=== PATIENT | male | born 1955 | race Caucasian/White ===

== ENCOUNTER 2019-10-03 15:22 | Emergency (ER) | payer MEDICARE, SELFPAY ==
[2019-10-03 15:24] VITALS: BP 148/84; PULSE 83; RESP 18; TEMP 36.8; O2SAT 97
[2019-10-03 15:25] VITALS: BP 148/84; PULSE 87; RESP 18; TEMP 36.8; O2SAT 97; BMI 39.0
--- NOTE | 2019-10-03 15:43 | ED.DCSUM_ITS ---
History of Present Illness Chief Complaint: Edema Informant: Patient Onset: Hours - 2 Context: Sudden Onset - relatively Timing: Continuous Quality: swelling. no pain, itching. just uncomfortable. Location: left jaw Current Severity: Mild Maximum Severity: Mild Worsened by: nothing in particular Relieved by: nothing Associated Symptoms: none. Narrative: Patient had angioedema of the left side of his tongue a week ago, he was put on prednisone which seemed to help, and he was admitted to the ICU for monitoring without the need for intubation. He states he seemed to have caught a cold from that visit, which was at [place] in [place], [place], and he has been taking NyQuil yesterday concerned that that may have caused this. He states he used to be on lisinopril and had angioedema from that years ago but has been off of all CLAI inhibitor's and ARBs since then. He has no idea what started this a week ago. He was put on prednisone and took the last dose yesterday and had this occur today but it has not involved his tongue or his throat at all. He denies any problems breathing or swallowing. He denies any fevers. Denies any chest or abdominal symptoms. He states he feels fine except for the swelling in his left jaw. It does not involve his lip either. - Past Medical History (1) Hypertension Status: Chronic (2) Hyperlipidemia Status: Chronic (3) Type 2 diabetes mellitus Status: Chronic Past Medical History - Allergies and Home Meds Allergies/Adverse Reactions: Allergies empagliflozin [From Jardiance] Allergy (Verified 10/03/19 16:04) Itching lisinopril Allergy (Verified 10/03/19 16:04) Angioedema Primary Care Physician: Lobo Alan MD [Primary Care Provider] - Alcohol: None Drugs: None Review of Systems General: Denies: Chills, Fever, Sweats Eyes: Denies: Visual changes - bilaterally, Diplopia ENT: Reports: - - Left jaw swelling. No dental pain/gingival pain/oral pain. Denies: Rhinorrhea, Sore throat Cardiovascular: Denies: Chest pain, Palpitations Respiratory: Denies: Dyspnea, Cough, Dyspnea on exertion Gastrointestinal: Denies: Abdominal pain, Nausea, Vomiting, Diarrhea, Melena, Hematochezia Genitourinary: Denies: Dysuria, Hematuria, Frequency Musculoskeletal: Denies: Back pain, Swelling, Extremity Pain Skin: Denies: Rash, Wounds Neurological: Denies: Headache, Weakness, Numbness Physical Exam Vital Signs/Narrative: Vital Signs Temp Pulse Resp BP Pulse Ox 10/03/19 15:25 98.2 F 87 18 148/84 H 97 10/03/19 15:24 98.2 F 83 18 148/84 H 97 Inital Vital Signs reviewed: Yes General: Well nourished, Well developed, Obese, No Acute Distress - Well- appearing, conversive in full sentences Head: Normocephalic, Atraumatic Eyes: Perrl, EOMI ENT: Moist mucous membranes, No rhinorrhea, - - Mild swollen area left anterior jaw. It is not fluctuant or tender or erythematous. There is no intraoral tenderness, swelling, tongue asymmetry, or intraoral angioedema. His lips are normal and symmetric without edema. He is edentulous, his gingiva are nontender. There is no intraoral mucosal lesion. I lied him flat. He has no trouble breathing, no stridor, no symptoms. Neck: Supple, Nontender, No lymphadenopathy, No JVD Cardiovascular: Regular rate, Regular rhythm, No murmurs, Normal S1, Normal S2. Negative for: Tachycardia Respiratory: No distress, CTA bilaterally, Chest nontender Abdomen: Soft, Nontender, Nondistended, Normal bowel sounds Back: Nontender, Normal Inspection Extremities: Nontender, No edema Skin: Normal color, No rash, No Trauma Neurological: Alert, Oriented x3, Cranial nerves II-XII grossly intact, Normal Strength, Normal Sensation, Normal Gait Psychological: Normal affect, Normal Mood Diagnostic/Tx/Re-eval - Medical Decision Making Discussed with patient that I advised that he get prednisone and be admitted today/tonight, in order to be the most safe. He refuses and wants to stay here for a while to see if the prednisone helps, he states it helped quickly in the past. IV ordered along with Solu-Medrol 125 mg. On reevaluation 2 hours later, patient feels improved. He still has a little swelling there. There is no lip or tongue involvement or any worsening symptoms. He wants to go home. We discussed thoroughly about risks, and the fact that he lives in between to emergency departments. He understands the risks, he has had it come on very quickly before, he feels like things are improving and he wants to go home on prednisone which I am fine with, with the shared decision making I do not feel he needs to be discharged AGAINST MEDICAL ADVICE given his experience with this before and recently finishing prednisone. He has an appointment with an associate spa director this coming month and he is following up, sooner if he is able. His recent prednisone was not a taper, we will be extending it and tapering it down. ED Disposition - Plan for ED Patient: Disposition: Home or Assisted Living Diagnosis: Idiopathic angioedema Instructions: ED Angioedema Prescriptions: Prednisone 10 mg PO UD #33 tab Prescription Printed Referrals: Lobo Alan MD [Primary Care Provider] - As soon as possible (And/or your associate spa director)
[2019-10-03] MEDS: MethylPREDNISolone 125 MG/2 ML Vial IV (16:13)
[2019-10-03 18:05] VITALS: BP 145/69; PULSE 85; RESP 16; O2SAT 96
--- NOTE | 2019-10-03 18:05 | ED.RN ---
IV DC'ED, CATHETER INTACT, SMALL GAUZE DRESSING PLACED. DISCHARGE INSTRUCTIONS GIVEN TO AND REVIEWED WITH PATIENT, PATIENT DENIES QUESTIONS OR CONCERNS AND VOICES UNDERSTANDING OF DISCHARGE INSTRUCTIONS. PT AMBULATES OUT OF ROOM WITHOUT DIFFICULTY.
== END 2019-10-03 18:06 | disposition home or self-care (01) ==
PROVIDERS: Emergency Provider Emergency Medicine; PCP Family Medicine
DX: T78.3XXA Angioneurotic edema, initial encounter (principal); E11.9 Type 2 diabetes mellitus without complications; I10 Essential (primary) hypertension; E78.5 Hyperlipidemia, unspecified; E66.9 Obesity, unspecified; Z79.84 Long term (current) use of oral hypoglycemic drugs; Z79.52 Long term (current) use of systemic steroids; Z79.899 Other long term (current) drug therapy; Z88.8 Allergy status to other drugs, medicaments and biological substances
CPT/HCPCS: 96374; 99283; A4216

== ENCOUNTER → 2020-11-19 09:05 | Outpatient (CLI) | payer MEDICARE, SELFPAY ==
[2020-11-19 09:44] LABS: Absolute Lymphocyte Count 3.74 X10^3/uL (0.83-4.51); Absolute Neutrophil Count 4.8 X10^3/uL (2.0-7.7); Basophil# 0.06 X10^3/uL; Basophil% 0.6 % (0-1); Eosinophil# 0.54 X10^3/uL; Eosinophils% 5.5 % (0-5); Hemoglobin 14.5 g/dL (13.0-16.5); Lymphocyte # 3.74 X10^3/ul (4.0); Mean Corp Hgb Conc 33.7 g/dL (32-36); Mean Corpuscular Hgb 29.9 pg (27.0-32.0); Mean Corpuscular Volume 88.7 fL (80-94); Mean Platelet Vol. 8.5 fl (6.2-12.0); Monocyte# 0.66 X10^3/uL; Monocyte% 6.7 % (0-10); NRBC Flagged by Analyzer 0 % (0-5); Neutrophil # 4.82 X10^3/uL (2.7-7.7); Neutrophil % 48.9 % (47-70); Platelet Count 302 K/mm3 (150-450); RBC Distribution Width CV 11.9 % (11.6-14.6); RBC Distribution Width SD 38.5 fl (35.1-43.9); Red Blood Count 4.85 M/mm3 (4.6-6.2); White Blood Count 9.9 K/mm3 (4.4-11.0)
[2020-11-19 09:58] LABS: Anion Gap 4 (5-15); BUN 11 mg/dL (7-18); BUN/Creat Ratio 11.3 RATIO (10-20); Chloride 105 mmol/L (98-107); Creatinine, Serum 0.98 mg/dL (0.70-1.30); EST Glomerular Filtration Rate 81 mL/min (>60); Est Glom Filt Rate - Afr Amer 98 mL/min (>60); Glucose 259 mg/dL (74-106); Potassium 4.7 mmol/L (3.5-5.1); Sodium Level 140 mmol/L (136-145)
[2020-11-19 10:01] LABS: Hemoglobin A1c 10.5 % (3.8-5.6)
== END ==
PROVIDERS: PCP Family Medicine; Referring Provider Family Medicine; Visit Provider Family Medicine
DX: E11.65 Type 2 diabetes mellitus with hyperglycemia (principal); I10 Essential (primary) hypertension
CPT/HCPCS: 36415; 80048; 83036; 85025

== ENCOUNTER → 2020-11-22 14:44 | Outpatient (CLI) | payer MEDICARE, SELFPAY ==
[2020-11-22 15:37] LABS: CRP < 2.90 mg/L (0.0-3.0)
[2020-11-26 07:32] LABS: ANTINUCLEAR ANTIBODIES DIRECT Negative (Negative)
[2020-11-27 14:10] LABS: Immunoglobulin E 196 IU/mL (6-495); Immunoglobulin G 855 mg/dL (603-1613); PROEL- A/G Ratio 1.2 (0.7-1.7); PROEL- Albumin 3.6 g/dL (2.9-4.4); PROEL- Alpha-1 Globulin 0.2 g/dL (0.0-0.4); PROEL- Beta Globulin 1.1 g/dL (0.7-1.3); PROEL- Gamma Globulin 0.8 g/dL (0.4-1.8); PROEL- Globulin, Total 3.1 g/dL (2.2-3.9); PROEL- TOTAL PROTEIN 6.7 g/dL (6.0-8.5); PROELU- Albumin, Urine 30.4 % (.); PROELU- Alpha-1-Globulin,Ur 1.6 % (.); PROELU- Beta Globulin, Ur 27.7 % (.); PROELU- Gamma Globulin, Ur 26.3 % (.); Total Protein, Ur 9.2 mg/dL (Not Estab.)
[2020-11-27 15:08] LABS: CMV Acute Antibody IgM < 30.0 AU/mL (0.0-29.9); Immunoglobulin A 321 mg/dL (61-437)
== END ==
LOC: PAVLAB 14:46
PROVIDERS: PCP Family Medicine; Referring Provider Family Medicine; Visit Provider Family Medicine
DX: T78.3XXD Angioneurotic edema, subsequent encounter (principal); X58.XXXD Exposure to other specified factors, subsequent encounter
CPT/HCPCS: 36415; 82784; 82785; 84165; 84166; 86038; 86140; 86645

== ENCOUNTER → 2021-02-22 10:59 | Outpatient (CLI) | payer MEDICARE, SELFPAY ==
[2021-02-22 11:57] LABS: AST(SGOT) 18 U/L (15-37); Alanine Aminotransfer ALT/SGPT 29 U/L (16-61); Albumin, Serum 3.5 g/dL (3.2-5.0); Alkaline Phosphatase 31 U/L (45-117); Anion Gap 6 (5-15); BUN 13 mg/dL (7-18); BUN/Creat Ratio 13.2 RATIO (10-20); Calcium,Total 8.8 mg/dL (8.5-10.1); Chloride 105 mmol/L (98-107); Creatinine, Serum 0.99 mg/dL (0.70-1.30); EST Glomerular Filtration Rate 80 mL/min (>60); Est Glom Filt Rate - Afr Amer 97 mL/min (>60); Globulin 3.5 g/dL (2.2-4.2); Glucose 198 mg/dL (74-106); Potassium 3.6 mmol/L (3.5-5.1); Sodium Level 139 mmol/L (136-145); Thyroid Stim Hormone (TSH) 3.42 uIU/mL (0.358-3.74)
[2021-02-22 19:16] LABS: Xtra Tube EP Lab EXTRA TUBE
== END ==
LOC: PAVLAB 11:00
PROVIDERS: PCP Family Medicine; Referring Provider Nurse Practitioner Adult Health; Visit Provider Nurse Practitioner Adult Health
DX: E11.65 Type 2 diabetes mellitus with hyperglycemia (principal); E03.9 Hypothyroidism, unspecified; Z12.5 Encounter for screening for malignant neoplasm of prostate
CPT/HCPCS: 36415; 80053; 84153; 84443; G0103

== ENCOUNTER → 2021-08-21 11:03 | Outpatient (CLI) | payer MEDICARE, SELFPAY ==
[2021-08-21 11:45] LABS: Cholesterol 88 mg/dL (200); High Density Lipoprotein 30 mg/dL; Triglycerides 112 mg/dL; Very Low Density Lipoprotein 22 mg/dL (5-40)
[2021-08-21 12:02] LABS: Microalbumin:Creatinine Ratio 70.9 mg/g CRE (<30 mg/g CRE)
== END ==
PROVIDERS: PCP Family Medicine; Referring Provider Nurse Practitioner Adult Health; Visit Provider Nurse Practitioner Adult Health
DX: E11.65 Type 2 diabetes mellitus with hyperglycemia (principal)
CPT/HCPCS: 36415; 80061; 82043; 82570

== ENCOUNTER 2021-11-13 09:09 | Outpatient (CLI) | payer MEDICARE, SELFPAY ==
[2021-11-13 09:44] LABS: ALB/GLOB Ratio 0.9 RATIO (0.9-2.4); AST(SGOT) 17 U/L (15-37); Alanine Aminotransfer ALT/SGPT 25 U/L (16-61); Albumin, Serum 3.7 g/dL (3.2-5.0); Alkaline Phosphatase 30 U/L (45-117); Anion Gap 6 (5-15); BUN 20 mg/dL (7-18); BUN/Creat Ratio 18.7 RATIO (10-20); Calcium,Total 9.6 mg/dL (8.5-10.1); Chloride 102 mmol/L (98-107); Creatinine, Serum 1.07 mg/dL (0.70-1.30); EST Glomerular Filtration Rate 73 mL/min (>60); Est Glom Filt Rate - Afr Amer 88 mL/min (>60); Globulin 3.9 g/dL (2.2-4.2); Glucose 194 mg/dL (74-106); Protein, Total 7.6 g/dL (6.4-8.2); Sodium Level 137 mmol/L (136-145)
== END 2021-11-13 23:59 | disposition home or self-care (01) ==
LOC: PAVLAB 09:12
PROVIDERS: PCP Family Medicine; Referring Provider Nurse Practitioner Adult Health; Visit Provider Nurse Practitioner Adult Health
DX: E11.65 Type 2 diabetes mellitus with hyperglycemia (principal)
CPT/HCPCS: 36415; 80053

== ENCOUNTER → 2022-03-04 | Outpatient (CLI) | payer MEDICARE, SELFPAY ==
[2022-03-04 09:25] LABS: Hematocrit 44.5 % (40-54); Hemoglobin 15.6 g/dL (13.0-16.5); Mean Corp Hgb Conc 35.1 g/dL (32-36); Mean Corpuscular Hgb 29.9 pg (27.0-32.0); Mean Corpuscular Volume 85.2 fL (80-94); Mean Platelet Vol. 8.2 fl (6.2-12.0); Platelet Count 347 K/mm3 (150-450); RBC Distribution Width SD 37.3 fl (35.1-43.9); Red Blood Count 5.22 M/mm3 (4.6-6.2); White Blood Count 11.3 K/mm3 (4.4-11.0)
[2022-03-04 09:55] LABS: Cholesterol 121 mg/dL (200); High Density Lipoprotein 29 mg/dL; PSA,Total - Annual Screen 2.25 ng/mL (0.00-4.00); Thyroid Stim Hormone (TSH) 4.41 uIU/mL (0.358-3.74); Triglycerides 176 mg/dL; Very Low Density Lipoprotein 35 mg/dL (5-40)
== END | disposition home or self-care (01) ==
LOC: PAVLAB 08:57
PROVIDERS: PCP Family Medicine; Referring Provider Nurse Practitioner Adult Health; Visit Provider Nurse Practitioner Adult Health
DX: E11.65 Type 2 diabetes mellitus with hyperglycemia (principal); Z12.5 Encounter for screening for malignant neoplasm of prostate
CPT/HCPCS: 36415; 80061; 84153; 84443; 85027; G0103

== ENCOUNTER → 2022-03-06 | Outpatient (CLI) | payer MEDICARE, SELFPAY ==
[2022-03-06 13:03] LABS: Thyroid Stim Hormone (TSH) 0.96 uIU/mL (0.358-3.74)
== END | disposition home or self-care (01) ==
DX: R94.6 Abnormal results of thyroid function studies (principal)
CPT/HCPCS: 36415; 84439; 84443; 84481

== ENCOUNTER → 2022-09-27 | Outpatient (CLI) | payer MEDICARE, SELFPAY ==
[2022-09-27 10:30] LABS: Hematocrit 42.3 % (40-54); Hemoglobin 14.6 g/dL (13.0-16.5); Mean Corp Hgb Conc 34.5 g/dL (32-36); Mean Corpuscular Hgb 30.5 pg (27.0-32.0); Mean Corpuscular Volume 88.3 fL (80-94); Mean Platelet Vol. 8.6 fl (6.2-12.0); Platelet Count 341 K/mm3 (150-450); RBC Distribution Width CV 12.4 % (11.6-14.6); RBC Distribution Width SD 39.9 fl (35.1-43.9); Red Blood Count 4.79 M/mm3 (4.6-6.2); White Blood Count 9.7 K/mm3 (4.4-11.0)
[2022-09-27 10:59] LABS: Hemoglobin A1c 9.7 % (3.8-5.6)
[2022-09-27 11:04] LABS: ALB/GLOB Ratio 0.9 RATIO (0.9-2.4); AST(SGOT) 14 U/L (15-37); Alanine Aminotransfer ALT/SGPT 25 U/L (16-61); Albumin, Serum 3.5 g/dL (3.2-5.0); Alkaline Phosphatase 33 U/L (45-117); Anion Gap 8 (5-15); BUN 15 mg/dL (7-18); BUN/Creat Ratio 17.4 RATIO (10-20); Calcium,Total 8.9 mg/dL (8.5-10.1); Chloride 103 mmol/L (98-107); Cholesterol 120 mg/dL (200); Creatinine, Serum 0.86 mg/dL (0.70-1.30); EST Glomerular Filtration Rate 94 mL/min (>60); Est Glom Filt Rate - Afr Amer 113 mL/min (>60); Globulin 3.7 g/dL (2.2-4.2); Glucose 222 mg/dL (74-106); High Density Lipoprotein 38 mg/dL; Potassium 3.9 mmol/L (3.5-5.1); Protein, Total 7.2 g/dL (6.4-8.2); Sodium Level 138 mmol/L (136-145); Thyroid Stim Hormone (TSH) 2.13 uIU/mL (0.358-3.74); Triglycerides 172 mg/dL; Very Low Density Lipoprotein 34 mg/dL (5-40)
== END | disposition home or self-care (01) ==
LOC: LAB 09:54
PROVIDERS: Visit Provider Nurse Practitioner Family
DX: E11.65 Type 2 diabetes mellitus with hyperglycemia (principal); E78.5 Hyperlipidemia, unspecified; E03.9 Hypothyroidism, unspecified
CPT/HCPCS: 36415; 80053; 80061; 83036; 84443; 85027

== ENCOUNTER → 2023-03-31 | Outpatient (CLI) | payer MEDICARE, SELFPAY ==
[2023-03-31 11:01] LABS: Absolute Lymphocyte Count 3.97 X10^3/uL (0.83-4.51); Basophil# 0.08 X10^3/uL; Basophil% 0.7 % (0-1); Eosinophil# 0.68 X10^3/uL; Eosinophils% 5.9 % (0-5); Hemoglobin 16.1 g/dL (13.0-16.5); Lymphocyte # 3.97 X10^3/ul (0.83-4.51); Lymphocyte % 34.5 % (19-41); Mean Corp Hgb Conc 34.3 g/dL (32-36); Mean Corpuscular Hgb 29.8 pg (27.0-32.0); Mean Platelet Vol. 8.3 fl (6.2-12.0); Monocyte# 0.79 X10^3/uL; Monocyte% 6.9 % (0-10); NRBC Flagged by Analyzer 0 % (0-5); Neutrophil # 5.96 X10^3/uL (2.7-7.7); Neutrophil % 51.7 % (47-70); Platelet Count 324 K/mm3 (150-450); RBC Distribution Width CV 12.1 % (11.6-14.6); RBC Distribution Width SD 38.3 fl (35.1-43.9); White Blood Count 11.5 K/mm3 (4.4-11.0)
[2023-03-31 11:17] LABS: Microalbumin,Random Urine 10.5 mg/L (NO RANGE EST.); Microalbumin:Creatinine Ratio 5.9 mg/g CRE (<30 mg/g CRE)
[2023-03-31 11:26] LABS: ALB/GLOB Ratio 0.8 RATIO (0.9-2.4); AST(SGOT) 18 U/L (15-37); Alanine Aminotransfer ALT/SGPT 24 U/L (16-61); Albumin, Serum 3.4 g/dL (3.2-5.0); Alkaline Phosphatase 38 U/L (45-117); Anion Gap 9 (5-15); BUN 19 mg/dL (7-18); Calcium,Total 9.1 mg/dL (8.5-10.1); Chloride 105 mmol/L (98-107); Cholesterol 135 mg/dL (200); EST Glomerular Filtration Rate 79 mL/min (>60); Est Glom Filt Rate - Afr Amer 95 mL/min (>60); Globulin 4.2 g/dL (2.2-4.2); Glucose 108 mg/dL (74-106); High Density Lipoprotein 37 mg/dL; Potassium 3.9 mmol/L (3.5-5.1); Protein, Total 7.6 g/dL (6.4-8.2); Sodium Level 139 mmol/L (136-145); Triglycerides 204 mg/dL; Very Low Density Lipoprotein 41 mg/dL (5-40)
== END | disposition home or self-care (01) ==
LOC: PAVLAB 10:24
PROVIDERS: Referring Provider Nurse Practitioner Family; Visit Provider Nurse Practitioner Family
DX: E11.65 Type 2 diabetes mellitus with hyperglycemia (principal); E03.9 Hypothyroidism, unspecified; E78.5 Hyperlipidemia, unspecified
CPT/HCPCS: 36415; 80053; 80061; 82043; 82570; 83036; 84443; 85025

== ENCOUNTER → 2023-12-22 | Outpatient (CLI) | payer MEDICARE, SELFPAY ==
[2023-12-22 09:05] LABS: Absolute Lymphocyte Count 3.88 X10^3/uL (0.83-4.51); Absolute Neutrophil Count 6.3 X10^3/uL (2.0-7.7); Basophil% 0.8 % (0-1); Eosinophil# 0.87 X10^3/uL; Eosinophils% 7.1 % (0-5); Hemoglobin 15.1 g/dL (13.0-16.5); Lymphocyte # 3.88 X10^3/ul (0.83-4.51); Lymphocyte % 31.8 % (19-41); Mean Corp Hgb Conc 34.3 g/dL (32-36); Mean Corpuscular Hgb 29.4 pg (27.0-32.0); Mean Corpuscular Volume 85.6 fL (80-94); Mean Platelet Vol. 8.5 fl (6.2-12.0); Monocyte# 0.95 X10^3/uL; Monocyte% 7.8 % (0-10); NRBC Flagged by Analyzer 0 % (0-5); Neutrophil # 6.34 X10^3/uL (2.7-7.7); Neutrophil % 52.1 % (47-70); Platelet Count 360 K/mm3 (150-450); RBC Distribution Width CV 12.3 % (11.6-14.6); RBC Distribution Width SD 37.9 fl (35.1-43.9); Red Blood Count 5.14 M/mm3 (4.6-6.2); White Blood Count 12.2 K/mm3 (4.4-11.0)
[2023-12-22 09:27] LABS: Vitamin D,25 Hydroxy 77.8 ng/mL
[2023-12-22 11:51] LABS: AST(SGOT) 14 U/L (15-37); Alanine Aminotransfer ALT/SGPT 27 U/L (16-61); Albumin, Serum 3.7 g/dL (3.2-5.0); Alkaline Phosphatase 33 U/L (45-117); Anion Gap 7 (5-15); BUN 17 mg/dL (7-18); BUN/Creat Ratio 16.3 RATIO (10-20); Calcium,Total 9.4 mg/dL (8.5-10.1); Chloride 106 mmol/L (98-107); Cholesterol 138 mg/dL (200); Creatinine, Serum 1.04 mg/dL (0.70-1.30); EST Glomerular Filtration Rate 75 mL/min (>60); Est Glom Filt Rate - Afr Amer 91 mL/min (>60); Globulin 3.6 g/dL (2.2-4.2); Glucose 165 mg/dL (74-106); High Density Lipoprotein 37 mg/dL; Potassium 3.8 mmol/L (3.5-5.1); Protein, Total 7.3 g/dL (6.4-8.2); Sodium Level 139 mmol/L (136-145); Thyroid Stim Hormone (TSH) 4.58 uIU/mL (0.358-3.74); Triglycerides 242 mg/dL; Very Low Density Lipoprotein 48 mg/dL (5-40)
[2023-12-22 12:22] LABS: Microalbumin,Random Urine 17.3 mg/L (NO RANGE EST.); Microalbumin:Creatinine Ratio 15.7 mg/g CRE (<30 mg/g CRE)
== END | disposition home or self-care (01) ==
PROVIDERS: Referring Provider Nurse Practitioner Family; Visit Provider Nurse Practitioner Family
DX: E11.65 Type 2 diabetes mellitus with hyperglycemia (principal); E56.9 Vitamin deficiency, unspecified
CPT/HCPCS: 36415; 80053; 80061; 82043; 82306; 82570; 84443; 85025

== ENCOUNTER → 2024-03-23 | Outpatient (CLI) | payer MEDICARE, SELFPAY ==
[2024-03-23 13:12] LABS: PSA,Total - Annual Screen 2.78 ng/mL (0.00-4.00); Thyroid Stim Hormone (TSH) 2.07 uIU/mL (0.358-3.74)
[2024-03-23 14:21] LABS: Absolute Lymphocyte Count 3.35 X10^3/uL (0.83-4.51); Absolute Neutrophil Count 4.9 X10^3/uL (2.0-7.7); Basophil# 0.07 X10^3/uL; Basophil% 0.7 % (0-1); Eosinophil# 0.54 X10^3/uL; Eosinophils% 5.6 % (0-5); Hematocrit 48.6 % (40-54); Hemoglobin 16.6 g/dL (13.0-16.5); Lymphocyte # 3.35 X10^3/ul (0.83-4.51); Mean Corp Hgb Conc 34.2 g/dL (32-36); Mean Corpuscular Hgb 30.1 pg (27.0-32.0); Mean Corpuscular Volume 88.2 fL (80-94); Monocyte# 0.73 X10^3/uL; Monocyte% 7.6 % (0-10); NRBC Flagged by Analyzer 0 % (0-5); Neutrophil # 4.86 X10^3/uL (2.7-7.7); Neutrophil % 50.8 % (47-70); Platelet Count 317 K/mm3 (150-450); RBC Distribution Width CV 12.3 % (11.6-14.6); RBC Distribution Width SD 39.8 fl (35.1-43.9); Red Blood Count 5.51 M/mm3 (4.6-6.2); White Blood Count 9.6 K/mm3 (4.4-11.0)
== END | disposition home or self-care (01) ==
LOC: VSLAB 10:31
PROVIDERS: PCP Nurse Practitioner Family; Referring Provider Nurse Practitioner Family; Visit Provider Nurse Practitioner Family
DX: E03.9 Hypothyroidism, unspecified (principal); Z12.5 Encounter for screening for malignant neoplasm of prostate
CPT/HCPCS: 36415; 84153; 84443; 85025; G0103

== ENCOUNTER → 2024-09-22 | Outpatient (CLI) | payer MEDICARE, SELFPAY ==
[2024-09-22 13:22] LABS: Microalbumin,Random Urine < 5.0 mg/L (NO RANGE EST.)
[2024-09-22 13:29] LABS: AST(SGOT) 14 U/L (15-37); Alanine Aminotransfer ALT/SGPT 33 U/L (16-61); Albumin, Serum 3.5 g/dL (3.2-5.0); Alkaline Phosphatase 29 U/L (45-117); Anion Gap 6 (5-15); BUN 18 mg/dL (7-18); BUN/Creat Ratio 19.8 RATIO (10-20); Calcium,Total 9.3 mg/dL (8.5-10.1); Chloride 104 mmol/L (98-107); Cholesterol 102 mg/dL (200); Creatinine, Serum 0.91 mg/dL (0.70-1.30); EST Glomerular Filtration Rate 88 mL/min (>60); Est Glom Filt Rate - Afr Amer 106 mL/min (>60); Globulin 3.6 g/dL (2.2-4.2); Glucose 108 mg/dL (74-106); High Density Lipoprotein 42 mg/dL; Protein, Total 7.1 g/dL (6.4-8.2); Sodium Level 138 mmol/L (136-145); Triglycerides 160 mg/dL; Very Low Density Lipoprotein 32 mg/dL (5-40)
[2024-09-22 13:39] LABS: Absolute Lymphocyte Count 3.34 X10^3/uL (0.83-4.51); Basophil# 0.09 X10^3/uL; Basophil% 0.8 % (0-1); Eosinophils% 5.5 % (0-5); Hematocrit 47.5 % (40-54); Hemoglobin 16.1 g/dL (13.0-16.5); Lymphocyte # 3.34 X10^3/ul (0.83-4.51); Lymphocyte % 30.6 % (19-41); Mean Corp Hgb Conc 33.9 g/dL (32-36); Mean Corpuscular Volume 88.5 fL (80-94); Mean Platelet Vol. 8.9 fl (6.2-12.0); Monocyte# 0.88 X10^3/uL; Monocyte% 8.1 % (0-10); NRBC Flagged by Analyzer 0 % (0-5); Neutrophil # 5.97 X10^3/uL (2.7-7.7); Neutrophil % 54.7 % (47-70); Platelet Count 342 K/mm3 (150-450); RBC Distribution Width CV 12.5 % (11.6-14.6); RBC Distribution Width SD 40.7 fl (35.1-43.9); Red Blood Count 5.37 M/mm3 (4.6-6.2); White Blood Count 10.9 K/mm3 (4.4-11.0)
== END | disposition home or self-care (01) ==
LOC: VSLAB 08:59
PROVIDERS: PCP Nurse Practitioner Family; Visit Provider Nurse Practitioner Family
DX: E11.65 Type 2 diabetes mellitus with hyperglycemia (principal); E03.9 Hypothyroidism, unspecified; E78.5 Hyperlipidemia, unspecified; I10 Essential (primary) hypertension
CPT/HCPCS: 36415; 80053; 80061; 82043; 84443; 85025

== ENCOUNTER 2025-01-30 05:51 | Day surgery (SDC) | payer MEDICARE, SELFPAY ==
[2025-01-30] VITALS (10 sets, daily range): BP systolic 74–145; BP diastolic 46–94; PULSE 63–89; RESP 16; TEMP 36.1–36.6; O2SAT 92–98; BMI 37.0
[2025-01-30] MEDS: Lactated Ringers 1,000 ML 15 ML IV (06:50)
--- NOTE | 2025-01-30 07:10 | H&P.OPEN ---
HPI - General General Date of Service: 01/30/25 HPI Narrative SAL CROWLEY, is a 69 M who presents for screening colonoscopy due to history of colon cancer status post LAR in 2014. Patient most recent colonoscopy was in 2020 and 2 adenomatous polyps removed at that time. Patient denies any bright red blood per rectum does have occasional constipation. [facility] Medical History Wears dentures Wears hearing aid Wears glasses Cancer Depression Thyroid disease Insulin dependent diabetes mellitus Diabetes High cholesterol Injury of back Heartburn Non-smoker Shortness of breath on exertion Leg cramps Encounter for screening colonoscopy Colon cancer Hypothyroid Type 2 diabetes mellitus Hyperlipidemia Hypertension Home Medications ?Medication ?Instructions ?Recorded ?Last Taken ?Type atorvastatin 20 mg tablet 20 mg PO QHS 10/03/19 Unknown History ergocalciferol (vitamin D2) 1,250 50,000 unit PO BHATT 10/03/19 Unknown History mcg (50,000 unit) capsule hydrochlorothiazide 25 mg tablet 25 mg PO DAILY 10/03/19 Unknown History metformin 500 mg tablet 2 tab PO BID 10/03/19 Unknown History amlodipine 5 mg tablet 10 mg PO DAILY 12/27/24 Unknown History dapagliflozin propanediol 10 mg 10 mg PO QAM 12/27/24 01/26/25 History tablet (Farxiga) insulin glargine 100 unit/mL 45 unit subcut DAILY 12/27/24 01/30/25 05:00 History subcutaneous solution (Lantus U-100 Insulin) levothyroxine 50 mcg tablet 75 mcg PO DAILY 12/27/24 Unknown History losartan 25 mg tablet 25 mg PO QDAY 12/27/24 Unknown History tirzepatide 15 mg/0.5 mL 15 mg subcut QWEEK 12/27/24 01/22/25 History subcutaneous pen injector (Mounjaro) aspirin 81 mg tablet,delayed 81 mg PO QDAY 01/23/25 01/25/25 History release magnesium 200 mg tablet 400 mg PO DAILY 01/26/25 Unknown History melatonin 10 mg capsule 10 mg PO QHS 01/26/25 Unknown History multivitamin (Daily Multi-Vitamin 1 tab PO DAILY 01/26/25 Unknown History tablet) Allergy/AdvReac Type Severity Reaction Status Date / Time empagliflozin (From Allergy Itching Verified 01/30/25 06:38 Jardiance) lisinopril Allergy Angioedema Verified 01/30/25 06:38 Family History Father CVA (cerebral vascular accident) Mother Cancer Surgical History History of colon surgery S/P cataract extraction S/P appendectomy Social History Smoking Status: Never smoker alcohol intake: never Past Medical/Surgical History Planned Operation Planned Operative Procedure(s): COLONOSCOPY Previous Hospitalizations/Surgeries HX Hospitalizations: No Any Problems With Anesthesia: No You/Your Family Experience Fever (Hyperthermia) With Anes: No Cholinesterase deficiency: No Cardiovascular Hx Hypertension: Yes Respiratory Hx Sleep Apnea: No Hx Respiratory Tract Infection/Cold (presently): No Do You Snore Loudly (louder than talking or can be heard): No Do You Often Feel Tired/ Fatigued/ Sleepy Dring Daytime?: No Has Anyone Observed You Stop Breathing During Sleep?: No Result (for STOP score): Negative Smoking Status: Never smoker Neurological Does patient have nerve stimulator: No Blood Disorder Hx High Cholesterol: Yes Endocrine Hx Diabetes: Yes (type 2) Miscellaneous Hx Cancer: Yes (COLON) Recent Exposure to Contagious Disease: No Allergies empagliflozin (From Jardiance) Allergy (Verified 01/30/25 06:38) Itching lisinopril Allergy (Verified 01/30/25 06:38) Angioedema Discharge Is Pt Admitted From a Penitentiary, or a Halfway: No Who Could Help: [facility] After D/C, Where Do you Plan to Go: [facility] History Number of Risk Factors: 2 Vital Signs Vital Signs Vital Signs: 01/30/25 06:40 01/30/25 06:40 Temperature 97 F L Temperature Source Temporal Pulse Rate 89 Respiratory Rate 16 Respiratory Pattern Normal Blood Pressure 145/94 H Blood Pressure Mean 111 Blood Pressure Source Monitor Blood Pressure Position Semi-Fowlers Blood Pressure Location Right Arm Pulse Ox 98 Oxygen Delivery Method Room Air Weight Weight: 273 lb 5.971 oz Body Mass Index (BMI) 37.0 Physical Exam Const alert, oriented x3 and no apparent distress HEENT normocephalic and head/scalp atraumatic Resp normal respiratory effort Cardio regular rate GI soft to palpation and non-tender; Negative for non-distended Palpation: Negative for guarding Extremity no clubbing, cyanosis or edema Skin no rashes or lesions noted Neuro CN's II-XII intact bilaterally Psych mental status grossly normal Assessment & Plan Assessment/Plan (1) Hx of malignant neoplasm of colon: Surgery Risks - Colonoscopy I discussed with the patient the risks of the procedure: Yes Risks Include but are not Limited To: Risks include but are not limited to: Bleeding, perforation requiring further surgery, inability to complete colonoscopy requiring barium enema.
[2025-01-30 07:13] LABS: Bedside Glucose 168 mg/dL (74-106)
--- NOTE | 2025-01-30 07:18 | PCM.PRE.AN2 ---
ASA Classification* ASA Classification ASA Classification: 2 Assessment & Plan Anesthesia* Anesthesia Assessment Anesthesia Assessment: Discussed sedation and/or anesthesia options, risks, benefits, and alternatives with patient/parents/legal guardian/POA. Questions invited. The patient/parents/legal guardian/POA seems to understand and agrees to proceed with anesthesia plan. Reviewed the physical assessment, medical history, allergy history and patient home medications list prior to surgery/procedure/anesthetic and documented any changes. Performed airway and anesthesia risk assessments. Anesthesia Type Anesthesia Type: MAC Anesthesia Focused Assessment* Temperature: 97 F Pulse Rate: 89 Blood Pressure: 145/94 Respiratory Rate: 16 Pulse Ox: 98 Airway Assessment Mouth opens: >3 cm Mallampati Score: II Focused Labs Anesthesia Preop lab: CBC WBC 10.9 K/mm3 (4.4-11.0) 09/22/24 09:01 09/22/24 RBC 5.37 M/mm3 (4.6-6.2) 09/22/24 09:01 09/22/24 Hgb 16.1 g/dL (13.0-16.5) 09/22/24 09:01 09/22/24 Hct 47.5 % (40-54) 09/22/24 09:01 09/22/24 Plt Count 342 K/mm3 (150-450) 09/22/24 09:01 09/22/24 CHEMISTRY Potassium 4.0 mmol/L (3.5-5.1) 09/22/24 09:01 09/22/24 Sodium 138 mmol/L (136-145) 09/22/24 09:01 09/22/24 BUN 18 mg/dL (7-18) 09/22/24 09:01 09/22/24 Creatinine 0.91 mg/dL (0.70-1.30) 09/22/24 09:01 09/22/24 Glucose 108 mg/dL (74-106) H 09/22/24 09:01 09/22/24 POC Glucose 168 mg/dL (74-106) H 01/30/25 06:36 01/30/25 TSH 2.370 uIU/mL (0.358-3.740) 09/22/24 09:01 09/22/24 COAG Pre-Assessment Diagnosis/Proposed Procedure Planned Operative Procedure(s): COLONOSCOPY Anesthesia History Anesthesia History - investigative agent: Anesthesia History - investigative agent Hx Hospitalization No 01/30/25 07:12 Any Problems With Anesthesia No 01/30/25 07:12 Cholinesterase deficiency No 01/30/25 07:12 You/Your Family Experience No 01/30/25 07:12 fever (hyperthermia) with Relationship Recent Exposure to Contagious No 01/30/25 07:12 Disease Does patient have nerve No 01/30/25 07:12 stimulator Patient instructed to have device shut off --Does patient have Pacemaker No 01/30/25 06:40 or ICD? When Was Last Pacemaker Check QUESTION #4 FULL TEXT: You/Your Family Experience fever (hyperthermia) with Anesthesia Last Oral Intake Last Oral intake: Last Oral Intake NPO since 04:00 01/30/25 06:40 Meds taken in AM with sips of No 01/30/25 06:40 water? Meds patient instructed to take am of surgery PONV PONV - investigative agent: PONV - investigative agent Female No 01/26/25 09:22 HX of Motion Sickness No 01/26/25 09:22 HX of N/V After Surgery No 01/26/25 09:22 Non-Smoker Yes 01/26/25 09:22 Duration of Surgery greater No 01/26/25 09:22 than 60 minutes Number of Risk Factors 1 01/26/25 09:22 PONV Score Low Risk 01/26/25 09:22 Height & Weight Height & Weight: Anesthesia: Height & Weight Height 6 ft 01/30/25 06:40 Weight: 124 kg 01/30/25 06:40 Body Mass Index (BMI) 37.0 01/30/25 06:40 Respiratory Assessment Respiratory Assessment - investigative agent: Respiratory Tract Infection Hx - investigative agent Hx Respiratory Tract Infection No 01/30/25 07:12 STOP Sleep Apnea STOP Sleep Apnea - investigative agent: STOP Sleep Apnea - investigative agent Hx Hypertension Yes 01/30/25 07:12 Hx Sleep Apnea No 01/30/25 07:12 CPAP BIPAP Do you snore loudly (louder No 01/30/25 07:12 than talking or can be heard Do you often feel tired/ No 01/30/25 07:12 fatigued/ sleepy during daytime? Has anyone observed you stop No 01/30/25 07:12 breathing during sleep? STOP Results Negative 01/30/25 07:12 QUESTION #5 FULL TEXT : Do you snore loudly (louder than talking or can be heard through closed doors)? Tobacco Use History Tobacco Use History - investigative agent: Tobacco Use History - investigative agent Tobacco Use Smoking Status Never smoker 01/30/25 07:12 Hx Tobacco Use No 01/26/25 09:22 Years Smoking Packs Smoked per Day Smoking Cessation Date was within the last 15 years Hx Smoking Cessation Date Hx Smoking Cessation Counseling Hematologic Medial History Hematologic Hx - investigative agent: Hematologic Medical Hx - neck band setter Hx of Blood Transfusion No 01/26/25 09:22 Hx of Transfusion in last 3 No 01/26/25 09:22 Months Date of Last Transfusion (if within last 3 months) Ever experience any problems No 01/26/25 09:22 with transfusion(s)? Specify any problems Hx of Preganancy in last 3 N/A 01/26/25 09:22 Months Nurse Filling Out Transfusion [facility] 01/26/25 09:22 & Questions: Date: 01/26/25 01/26/25 09:22 Time: 09:36 01/26/25 09:22 Patient unable to answer at this time (ie. confused, unrespo /Reproduction History /Reproductive History - investigative agent: /Reproductive Hx- investigative agent Hx Now Gestational Age (in weeks): EDC: Hx Hx Para Hx Section SAB Active Medications Active Medications: Current Medications Generic Name Dose Route Start Last Admin Trade Name Freq PRN Reason Stop Dose Admin Lactated Ringer's 1,000 mls @ 15 mls/hr 01/30/25 06:15 01/30/25 06:50 IV 15 mls/hr .Q48H ANDRZEJ Administration PFSH Medical History Wears dentures Wears hearing aid Wears glasses Cancer Depression Thyroid disease Insulin dependent diabetes mellitus Diabetes High cholesterol Injury of back Heartburn Non-smoker Shortness of breath on exertion Leg cramps Encounter for screening colonoscopy Colon cancer Hypothyroid Type 2 diabetes mellitus Hyperlipidemia Hypertension Home Medications ?Medication ?Instructions ?Recorded ?Last Taken ?Type atorvastatin 20 mg tablet 20 mg PO QHS 10/03/19 Unknown History ergocalciferol (vitamin D2) 1,250 50,000 unit PO BHATT 10/03/19 Unknown History mcg (50,000 unit) capsule hydrochlorothiazide 25 mg tablet 25 mg PO DAILY 10/03/19 Unknown History metformin 500 mg tablet 2 tab PO BID 10/03/19 Unknown History amlodipine 5 mg tablet 10 mg PO DAILY 12/27/24 Unknown History dapagliflozin propanediol 10 mg 10 mg PO QAM 12/27/24 01/26/25 History tablet (Farxiga) insulin glargine 100 unit/mL 45 unit subcut DAILY 12/27/24 01/30/25 05:00 History subcutaneous solution (Lantus U-100 Insulin) levothyroxine 50 mcg tablet 75 mcg PO DAILY 12/27/24 Unknown History losartan 25 mg tablet 25 mg PO QDAY 12/27/24 Unknown History tirzepatide 15 mg/0.5 mL 15 mg subcut QWEEK 12/27/24 01/22/25 History subcutaneous pen injector (Mounjaro) aspirin 81 mg tablet,delayed 81 mg PO QDAY 01/23/25 01/25/25 History release magnesium 200 mg tablet 400 mg PO DAILY 01/26/25 Unknown History melatonin 10 mg capsule 10 mg PO QHS 01/26/25 Unknown History multivitamin (Daily Multi-Vitamin 1 tab PO DAILY 01/26/25 Unknown History tablet) Allergy/AdvReac Type Severity Reaction Status Date / Time empagliflozin (From Allergy Itching Verified 01/30/25 06:38 Jardiance) lisinopril Allergy Angioedema Verified 01/30/25 06:38 Family History Father CVA (cerebral vascular accident) Mother Cancer Surgical History History of colon surgery S/P cataract extraction S/P appendectomy Social History Smoking Status: Never smoker alcohol intake: never Review of Systems (Anesthesia) ROS Narrative System reviewed and no additional complaints, except as documented.
--- NOTE | 2025-01-30 07:30 | COLBX_PTH ---
PATIENT: SAL CROWLEY LOC: EN U#:[id number] AGE/SX: 69/M ROOM: RE01/30/[address]: Dr. Elizabeth Gallo MD : 1955 BED: DIS: 01/30/2025 SPEC #: [id number] RECD: 01/30/25 11:20 STATUS: KYLE REAxel #: [id number] HEMANT: 01/30/25 07:[address]: Elizabeth Gallo DEPT: SURGICAL PATHOLOGY RECD BY: Deven Syed ENTERED: 01/30/25 13:55 SP TYPE: COLON BX OTHR DR: Ugo Nicolas, INSTRUCTOR LOOPING-C Tissues: A - Transverse colon B - Descending colon Procedures: Surgery Specimen Level IV HEADER OPERATION: Colonoscopy with polypectomy PRE-OP DIAGNOSIS: History of malignant neoplasm of colon TISSUE SUBMITTED: A- Transverse colon polyp biopsy, B- Descending colon polyp biopsy MICROSCOPIC DIAGNOSIS A. Transverse colon, polyp, biopsy: Tubulovillous adenoma, multiple fragments. B. Descending colon, polyp, biopsy: Tubulovillous adenoma, multiple fragments. MICROSCOPIC DESCRIPTION Slides are reviewed. GROSS DESCRIPTION A. Received in formalin in a container labeled with the patient's name, date of , and transverse colon polyp biopsy are multiple jovel-pink fragments of disrupted polypoid pieces of mucosal tissue measuring 3.0 x 2.0 x 1.3 cm in aggregate. Due to the disrupted nature, a distinct resection margin is not grossly recognized. The largest fragments are sectioned, and the specimen is submitted entirely in A1-3. B. Received in formalin in a container labeled with the patient's name, date of , and descending colon polyp biopsy are multiple jovel-pink fragments of mucosal tissue measuring 2.5 x 1.5 x 1.0 cm in aggregate. The largest fragment is sectioned (no margin identified). The specimen is submitted entirely in B1-2. [facility] 01-30-2025 CPT:50632p5
--- NOTE | 2025-01-30 09:39 | OP.COLON_ITS ---
Patient Name: Arden Holman Procedure Date: 01/30/2025 8:01 AM Date of : 1955 Age: 69 Procedure: Colonoscopy Indications: High risk colon cancer surveillance: Personal history of colon cancer Providers: Elizabeth Gallo MD Referring MD: Ugo Noland, [employer] Home [employer] Medicines: Monitored Anesthesia Care Patient Profile: This is a 69 year old male. Last Colonoscopy: 2020. Complications: No immediate complications. Procedure: Pre-Anesthesia Assessment: - Prior to the procedure, a History and Physical was performed, and patient medications and allergies were reviewed. The patient's tolerance of previous anesthesia was also reviewed. The risks and benefits of the procedure and the sedation options and risks were discussed with the patient. All questions were answered, and informed consent was obtained. Prior Anticoagulants: The patient has taken no anticoagulant or antiplatelet agents. ASA Grade Assessment: Per anesthesia. After reviewing the risks and benefits, the patient was deemed in satisfactory condition to undergo the procedure. After I obtained informed consent, the scope was passed under direct vision. Throughout the procedure, the patient's blood pressure, pulse, and oxygen saturations were monitored continuously. The colonoscope was introduced through the anus and advanced to the cecum, identified by its appearance. The colonoscopy was performed with difficulty due to inadequate bowel prep. The patient tolerated the procedure well. Scope In: 8:11:04 AM Scope Out: 9:28:46 AM Total Procedure Duration Time 1 hour 17 minutes 42 seconds Findings: The perianal and digital rectal examinations were normal. Four semi-sessile polyps were found in the transverse colon. The polyps were 12 to 18 mm in size. These polyps were removed with a piecemeal technique using a hot snare. Resection and retrieval were complete. Area was successfully injected with [Volume] Libby ink for tattooing. Two sessile polyps were found in the transverse colon. The polyps were less than 5 mm in size. These polyps were removed with a hot snare. Resection and retrieval were complete. Four semi-sessile polyps were found in the descending colon. The polyps were 3 to 12 mm in size. These polyps were removed with a hot snare. Resection and retrieval were complete. There was evidence of a prior end-to-end low-anterior anastomosis in the distal descending colon. This was patent and was characterized by healthy appearing mucosa. The anastomosis was traversed. Impression: - Four 12 to 18 mm polyps in the transverse colon, removed piecemeal using a hot snare. Resected and retrieved. Injected. - Two less than 5 mm polyps in the transverse colon, removed with a hot snare. Resected and retrieved. - Four 3 to 12 mm polyps in the descending colon, removed with a hot snare. Resected and retrieved. - Patent end-to-end low-anterior anastomosis, characterized by healthy appearing mucosa. Recommendation: - Discharge patient to home. - Resume previous diet. - Continue present medications. - Await pathology results. - Repeat colonoscopy within 3 months for surveillance of multiple polyps. Procedure Code(s): --- Professional --- 98062, PT, Colonoscopy, flexible; with removal of tumor(s), polyp(s), or other lesion(s) by snare technique 72317, Colonoscopy, flexible; with directed submucosal injection(s), any substance Diagnosis Code(s): --- Professional --- Z85.038, Personal history of other malignant neoplasm of large intestine D12.3, Benign neoplasm of transverse colon (hepatic flexure or splenic flexure) D12.4, Benign neoplasm of descending colon Z98.0, Intestinal bypass and anastomosis status CPT copyright 2021 [employer]. All rights reserved. The codes documented in this report are preliminary and upon agricultural agent review may be revised to meet current compliance requirements. MD Elizabeth Still MD 01/30/2025 9:39:42 AM This report has been signed electronically. Number of Addenda: 0 Note Initiated On: 01/30/2025 8:01 AM
--- NOTE | 2025-01-30 09:40 | OP.CCLET_ITS ---
01/30/2025 Ugo Nicolas [facility], Diesel Stationary Engineer-c Re : Colonoscopy procedure for Arden Holman Dear Nicolas This procedure was performed on Thursday, January 30, 2025. My impressions and recommendations are as follows: Impressions : - Four 12 to 18 mm polyps in the transverse colon, removed piecemeal using a hot snare. Resected and retrieved. Injected. - Two less than 5 mm polyps in the transverse colon, removed with a hot snare. Resected and retrieved. - Four 3 to 12 mm polyps in the descending colon, removed with a hot snare. Resected and retrieved. - Patent end-to-end low-anterior anastomosis, characterized by healthy appearing mucosa. Recommendations : - Discharge patient to home. - Resume previous diet. - Continue present medications. - Await pathology results. - Repeat colonoscopy within 3 months for surveillance of multiple polyps. My findings are described in the full procedure note, which is enclosed. If I can be of further assistance, please feel free to contact me at Doctor phone number(s): , Work: . Sincerely, MD Elizabeth Still MD 01/30/2025 9:39:42 AM This report has been signed electronically.
--- NOTE | 2025-01-30 09:41 | PCM.POST.ANE ---
Anesthesia: Postop Eval I Current Vital Signs Temperature: 97.1 F Pulse Rate: 69 Blood Pressure: 88/63 Respiratory Rate: 16 Pulse Ox: 93 Oxygen Delivery Method: Room Air Assessment Airway patent: Yes Spontaneous unlabored respirations: Yes Mental status: Awake nausea: No Vomiting: No Anesthesia Complication: No Fluid Hydration Crystalloid volume administer (ml): 500 Total IV fluid infused: 500 Progress Note Anesthesia document: Postop Eval 1 completed: Yes
--- NOTE | 2025-01-30 09:48 | POSTOPAN2_ITS ---
Anesthesia Postop Eval I Sum Postop Eval Completion status Anesthesia document: Postop Eval 1 completed: Yes Anesthesia Postop Eval I Summary Anesthesia Postop Eval I Summary: Anesthesia Postop Eval I: Assessment Summary Airway patent Yes 01/30/25 09:42 HOME CARE [email or web address] Spontaneous unlabored Yes 01/30/25 09:42 HOME CARE [email or web address] respirations Mental status Awake 01/30/25 09:42 HOME CARE [email or web address] nausea No 01/30/25 09:42 HOME CARE [email or web address].[email or web address] Vomiting No 01/30/25 09:42 HOME CARE [email or web address] Anesthesia Postop Eval I: Fluid Summary Crystalloid volume administer 500 01/30/25 09:42 HOME CARE [email or web address] (ml) Colloids volume administered ( ml) Blood Product volume administered (ml) Total IV fluid infused 500 01/30/25 09:42 HOME CARE [email or web address].SOBR Anesthesia Postop Eval I: Summary Notes Anesthesia Complication No 01/30/25 09:42 HOME CARE [email or web address] Anesthesia Complication Comment: Post-operative progress note Anesthesia: Postop Eval II Evaluation Mental status: Awake Pain Level: 0 nausea: No Vomiting: No
--- NOTE | 2025-01-30 09:48 | PCM.POSTANE2 ---
Anesthesia Postop Eval I Sum Postop Eval Completion status Anesthesia document: Postop Eval 1 completed: Yes Anesthesia Postop Eval I Summary Anesthesia Postop Eval I Summary: Anesthesia Postop Eval I: Assessment Summary Airway patent Yes 01/30/25 09:42 [email or web address] Spontaneous unlabored Yes 01/30/25 09:42 BARGE [email or web address] respirations Mental status Awake 01/30/25 09:42 [email or web address] [email or web address] nausea No 01/30/25 09:42 BARGE [email or web address] Vomiting No 01/30/25 09:42 BARGE [email or web address] Anesthesia Postop Eval I: Fluid Summary Crystalloid volume administer 500 01/30/25 09:42 BARGE [email or web address] (ml) Colloids volume administered ( ml) Blood Product volume administered (ml) Total IV fluid infused 500 01/30/25 09:42 BARGE [email or web address] Anesthesia Postop Eval I: Summary Notes Anesthesia Complication No 01/30/25 09:42 BARGE [email or web address] Anesthesia Complication Comment: Post-operative progress note Anesthesia: Postop Eval II Evaluation Mental status: Awake Pain Level: 0 nausea: No Vomiting: No
== END 2025-01-30 10:28 | disposition home or self-care (01) ==
LOC: EN 05:51 → AC 05:52
PROVIDERS: PCP Nurse Practitioner Family; Referring Provider Nurse Practitioner Family; Visit Provider Surgery
PROC: 0DJD8ZZ Inspection of Lower Intestinal Tract, Via Natural or Artificial Opening Endoscopic (ICD-10-PCS; CPT 45378; principal; 2025-01-30 07:25)
DX: Z12.11 Encounter for screening for malignant neoplasm of colon (principal); E11.9 Type 2 diabetes mellitus without complications; Z79.4 Long term (current) use of insulin; E78.00 Pure hypercholesterolemia, unspecified; I10 Essential (primary) hypertension; Z79.82 Long term (current) use of aspirin; Z79.85 Long-term (current) use of injectable non-insulin antidiabetic drugs; Z85.038 Personal history of other malignant neoplasm of large intestine; Z79.899 Other long term (current) drug therapy; Z98.0 Intestinal bypass and anastomosis status; D12.3 Benign neoplasm of transverse colon; D12.4 Benign neoplasm of descending colon
CPT/HCPCS: 45385; 45381; 82962; 88305; A4648; J2405

== ENCOUNTER 2025-06-12 06:04 | Day surgery (SDC) | payer MEDICARE, SELFPAY ==
[2025-06-12] VITALS (9 sets, daily range): BP systolic 86–133; BP diastolic 50–85; PULSE 64–82; RESP 14–20; TEMP 36.2–36.5; O2SAT 96–99; BMI 37.5
[2025-06-12] MEDS: Lactated Ringers 1,000 ML 15 ML IV (07:01)
--- NOTE | 2025-06-12 07:20 | H&P.OPEN ---
[facility] - General General Date of Service: 06/12/25 HPI Narrative SAL CROWLEY, is a 69 M who presents for surveillance colonoscopy due to history of colon cancer status post LAR in 2014. Patient recently had a scope in January 2025 however did have multiple tubulovillous adenomas that were piecemeal removal with fair prep. Patient's previous colonoscopy to this was in 2020 at that time he had 2 adenomatous polyps removed. Patient has bowel is daily, denies any chronic abdominal pain/nausea/vomiting/reflux. [facility] Medical History (Updated 06/12/25 @ 07:[address] Elizabeth Gallo MD) Bladder disease Wears dentures Wears hearing aid Wears glasses Cancer Depression Thyroid disease Insulin dependent diabetes mellitus Diabetes High cholesterol Injury of back Heartburn Non-smoker Shortness of breath on exertion Leg cramps Encounter for screening colonoscopy Colon cancer Hypothyroid Type 2 diabetes mellitus Hyperlipidemia Hypertension Home Medications ?Medication ?Instructions ?Recorded ?Last Taken ?Type atorvastatin 20 mg tablet 20 mg PO QHS 10/03/19 Unknown History ergocalciferol (vitamin D2) 1,250 50,000 unit PO BHATT 10/03/19 Unknown History mcg (50,000 unit) capsule hydrochlorothiazide 25 mg tablet 25 mg PO DAILY 10/03/19 Unknown History metformin 500 mg tablet 2 tab PO BID 10/03/19 Unknown History amlodipine 5 mg tablet 10 mg PO DAILY 12/27/24 Unknown History dapagliflozin propanediol 10 mg 10 mg PO QAM 12/27/24 06/08/25 History tablet (Farxiga) insulin glargine 100 unit/mL 45 unit subcut DAILY 12/27/24 01/30/25 05:00 History subcutaneous solution (Lantus U-100 Insulin) levothyroxine 50 mcg tablet 75 mcg PO DAILY 12/27/24 Unknown History losartan 25 mg tablet 25 mg PO QDAY 12/27/24 Unknown History tirzepatide 15 mg/0.5 mL 15 mg subcut QWEEK 12/27/24 06/04/25 History subcutaneous pen injector (Jarettunmilanro) aspirin 81 mg tablet,delayed 81 mg PO QDAY 01/23/25 06/08/25 History release magnesium 200 mg tablet 400 mg PO DAILY 01/26/25 Unknown History melatonin 10 mg capsule 10 mg PO QHS 01/26/25 Unknown History multivitamin (Daily Multi-Vitamin 1 tab PO DAILY 01/26/25 Unknown History tablet) Allergy/AdvReac Type Severity Reaction Status Date / Time empagliflozin (From Allergy Itching Verified 06/12/25 06:49 Jardiance) lisinopril Allergy Angioedema Verified 06/12/25 06:49 Family History Father CVA (cerebral vascular accident) Mother Cancer Surgical History History of colon surgery S/P cataract extraction S/P appendectomy Social History Smoking Status: Never smoker alcohol intake: never Past Medical/Surgical History Planned Operation Planned Operative Procedure(s): COLONOSCOPY Previous Hospitalizations/Surgeries HX Hospitalizations: No Any Problems With Anesthesia: No You/Your Family Experience Fever (Hyperthermia) With Anes: No Cholinesterase deficiency: No Cardiovascular Hx Hypertension: Yes Respiratory Hx Sleep Apnea: No Hx Respiratory Tract Infection/Cold (presently): No Do You Snore Loudly (louder than talking or can be heard): No Do You Often Feel Tired/ Fatigued/ Sleepy Dring Daytime?: No Has Anyone Observed You Stop Breathing During Sleep?: No Result (for STOP score): Negative Smoking Status: Never smoker Neurological Does patient have nerve stimulator: No Blood Disorder Hx High Cholesterol: Yes Reproduction : No Endocrine Hx Diabetes: Yes (type 2) Miscellaneous Hx Cancer: Yes (COLON) Recent Exposure to Contagious Disease: No Allergies empagliflozin (From Jardiance) Allergy (Verified 06/12/25 06:49) Itching lisinopril Allergy (Verified 06/12/25 06:49) Angioedema Discharge Is Pt Admitted From a Usp, or a Half-Way: No Who Could Help: FRIEND After D/C, Where Do you Plan to Go: Return Home From the [facility] History Number of Risk Factors: 2 Vital Signs Vital Signs Vital Signs: 06/12/25 06:53 06/12/25 06:53 Temperature 97.7 F L Temperature Source Temporal Pulse Rate 82 Respiratory Rate 16 Respiratory Pattern Normal Blood Pressure 133/85 H Blood Pressure Mean 101 Blood Pressure Source Monitor Blood Pressure Position Semi-Fowlers Blood Pressure Location Right Arm Pulse Ox 99 Oxygen Delivery Method Room Air Weight Weight: 277 lb Body Mass Index (BMI) 37.5 Physical Exam Const alert, oriented x3 and no apparent distress HEENT normocephalic and head/scalp atraumatic Resp normal respiratory effort Cardio regular rate GI soft to palpation and non-tender; Negative for non-distended Palpation: Negative for guarding Extremity no clubbing, cyanosis or edema Skin no rashes or lesions noted Neuro CN's II-XII intact bilaterally Psych mental status grossly normal Assessment & Plan Assessment/Plan (1) Hx of malignant neoplasm of colon: (2) Tubulovillous adenoma of colon: PLAN: Plan I have discussed the above with the patient. I have offered the patient colonoscopy for evaluation. I have explained the risks/benefits of the procedure and described the procedure. I have discussed the risks with the patient, including but not limited to: infection, bleeding, perforation of the GI tract requiring emergency surgery, inability to complete the procedure, injury to any internal organs, complications of anesthesia, etc. - the patient understands and agrees to proceed. I have answered all the patient's questions to the patient's satisfaction and the patient has no further questions. The patient has been given instructions for the colon cleansing preparation. Elizabeth Gallo M.D. Pager: [phone] [facility] [address] [place] [address], [address] [place] [address] Office: [phone] Surgery Risks - Colonoscopy Risks Include but are not Limited To: Risks include but are not limited to: Bleeding, perforation requiring further surgery, inability to complete colonoscopy requiring barium enema.
--- NOTE | 2025-06-12 07:21 | PCM.PRE.AN2 ---
ASA Classification* ASA Classification ASA Classification: 3 Assessment & Plan Anesthesia* Anesthesia Assessment Anesthesia Assessment: Discussed sedation and/or anesthesia options, risks, benefits, and alternatives with patient/parents/legal guardian/POA. Questions invited. The patient/parents/legal guardian/POA seems to understand and agrees to proceed with anesthesia plan. Reviewed the physical assessment, medical history, allergy history and patient home medications list prior to surgery/procedure/anesthetic and documented any changes. Performed airway and anesthesia risk assessments. Anesthesia Type Anesthesia Type: MAC History Source History Obtained from:: Patient and Chart Anesthesia Focused Assessment* Temperature: 97.7 F Pulse Rate: 82 Blood Pressure: 133/85 Respiratory Rate: 16 Pulse Ox: 99 Airway Assessment Mouth opens: >3 cm Mallampati Score: II Labs Anesthesia Preop lab: CBC WBC, (4.4-11.0) 10.9 K/mm3 09/22/24, 09: RBC, (4.6-6.2) 5.37 M/mm3 09/22/24, 09: Hgb, (13.0-16.5) 16.1 g/dL 09/22/24, 09:01 Hct, (40-54) 47.5 % 09/22/24, 09:01 Plt Count, (150-450) 342 K/mm3 09/22/24, 09:01 CHEMISTRY Potassium, (3.5-5.1) 4.0 mmol/L 09/22/24, 09:01 Sodium, (136-145) 138 mmol/L 09/22/24, 09:01 BUN, (7-18) 18 mg/dL 09/22/24, 09:01 Creatinine, (0.70-1.30) 0.91 mg/dL 09/22/24, 09:01 Glucose, (74-106) 108 mg/dL H 09/22/24, 09:01 POC Glucose, (74-106) 168 mg/dL H 01/30/25, 06:36 TSH, (0.358-3.740) 2.370 uIU/mL 09/22/24, 09:01 COAG Pre-Assessment Diagnosis/Proposed Procedure Planned Operative Procedure(s): COLONOSCOPY Anesthesia History Anesthesia History - dealer relationship manager: Anesthesia History - dealer relationship manager Hx Hospitalization No 06/07/25 13:35 Any Problems With Anesthesia No 06/07/25 13:35 Cholinesterase deficiency No 06/07/25 13:35 You/Your Family Experience No 06/07/25 13:35 fever (hyperthermia) with Relationship Recent Exposure to Contagious No 06/12/25 06:53 Disease Does patient have nerve No 06/07/25 13:35 stimulator Patient instructed to have device shut off --Does patient have Pacemaker No 06/12/25 06:53 or ICD? When Was Last Pacemaker Check QUESTION #4 FULL TEXT: You/Your Family Experience fever (hyperthermia) with Anesthesia Last Oral Intake Last Oral intake: Last Oral Intake NPO since 00:00 06/12/25 06:53 Meds taken in AM with sips of water? Meds patient instructed to take am of surgery PONV PONV - dealer relationship manager: PONV - dealer relationship manager Female No 06/07/25 13:35 HX of Motion Sickness No 06/07/25 13:35 HX of N/V After Surgery No 06/07/25 13:35 Non-Smoker Yes 06/07/25 13:35 Duration of Surgery greater No 06/07/25 13:35 than 60 minutes Number of Risk Factors 1 06/07/25 13:35 PONV Score Low Risk 06/07/25 13:35 Height & Weight Height & Weight: Anesthesia: Height & Weight Height 6 ft 06/12/25 06:53 Weight: 125.645 kg 06/12/25 06:53 Body Mass Index (BMI) 37.5 06/12/25 06:53 Respiratory Assessment Respiratory Assessment - dealer relationship manager: Respiratory Tract Infection Hx - dealer relationship manager Hx Respiratory Tract Infection No 06/07/25 13:35 STOP Sleep Apnea STOP Sleep Apnea - dealer relationship manager: STOP Sleep Apnea - dealer relationship manager Hx Hypertension Yes 06/07/25 13:35 Hx Sleep Apnea No 06/07/25 13:35 CPAP BIPAP Do you snore loudly (louder No 06/07/25 13:35 than talking or can be heard Do you often feel tired/ No 06/07/25 13:35 fatigued/ sleepy during daytime? Has anyone observed you stop No 06/07/25 13:35 breathing during sleep? STOP Results Negative 06/07/25 13:35 QUESTION #5 FULL TEXT : Do you snore loudly (louder than talking or can be heard through closed doors)? Tobacco Use History Tobacco Use History - dealer relationship manager: Tobacco Use History - dealer relationship manager Tobacco Use Smoking Status Never smoker 06/07/25 13:35 Hx Tobacco Use No 06/07/25 13:35 Years Smoking Packs Smoked per Day Smoking Cessation Date was within the last 15 years Hx Smoking Cessation Date Hx Smoking Cessation Counseling Hematologic Medial History Hematologic Hx - dealer relationship manager: Hematologic Medical Hx - refund clerk Hx of Blood Transfusion No 06/07/25 13:35 Hx of Transfusion in last 3 No 06/07/25 13:35 Months Date of Last Transfusion (if within last 3 months) Ever experience any problems No 06/07/25 13:35 with transfusion(s)? Specify any problems Hx of Preganancy in last 3 N/A 06/07/25 13:35 Months Nurse Filling Out Transfusion [facility] 06/07/25 13:35 & Questions: Date: 06/07/25 06/07/25 13:35 Time: 13:38 06/07/25 13:35 Patient unable to answer at this time (ie. confused, unrespo /Reproduction History /Reproductive History - dealer relationship manager: /Reproductive Hx- dealer relationship manager Hx Now No 06/07/25 13:35 Gestational Age (in weeks): EDC: Hx Hx Para Hx Section SAB No 06/07/25 13:35 Active Medications Active Medications: Current Medications Generic Name Dose Route Start Last Admin Trade Name Freq PRN Reason Stop Dose Admin Lactated Ringer's 1,000 mls @ 15 mls/hr 06/12/25 06:30 06/12/25 07:01 IV 15 mls/hr .Q48H ANDRZEJ Administration PFSH Medical History Bladder disease Wears dentures Wears hearing aid Wears glasses Cancer Depression Thyroid disease Insulin dependent diabetes mellitus Diabetes High cholesterol Injury of back Heartburn Non-smoker Shortness of breath on exertion Leg cramps Encounter for screening colonoscopy Colon cancer Hypothyroid Type 2 diabetes mellitus Hyperlipidemia Hypertension Home Medications ?Medication ?Instructions ?Recorded ?Last Taken ?Type atorvastatin 20 mg tablet 20 mg PO QHS 10/03/19 Unknown History ergocalciferol (vitamin D2) 1,250 50,000 unit PO BHATT 10/03/19 Unknown History mcg (50,000 unit) capsule hydrochlorothiazide 25 mg tablet 25 mg PO DAILY 10/03/19 Unknown History metformin 500 mg tablet 2 tab PO BID 10/03/19 Unknown History amlodipine 5 mg tablet 10 mg PO DAILY 12/27/24 Unknown History dapagliflozin propanediol 10 mg 10 mg PO QAM 12/27/24 06/08/25 History tablet (Farxiga) insulin glargine 100 unit/mL 45 unit subcut DAILY 12/27/24 01/30/25 05:00 History subcutaneous solution (Lantus U-100 Insulin) levothyroxine 50 mcg tablet 75 mcg PO DAILY 12/27/24 Unknown History losartan 25 mg tablet 25 mg PO QDAY 12/27/24 Unknown History tirzepatide 15 mg/0.5 mL 15 mg subcut QWEEK 12/27/24 06/04/25 History subcutaneous pen injector (Jarettunjaro) aspirin 81 mg tablet,delayed 81 mg PO QDAY 01/23/25 06/08/25 History release magnesium 200 mg tablet 400 mg PO DAILY 01/26/25 Unknown History melatonin 10 mg capsule 10 mg PO QHS 01/26/25 Unknown History multivitamin (Daily Multi-Vitamin 1 tab PO DAILY 01/26/25 Unknown History tablet) Allergy/AdvReac Type Severity Reaction Status Date / Time empagliflozin (From Allergy Itching Verified 06/12/25 06:49 Jardiance) lisinopril Allergy Angioedema Verified 06/12/25 06:49 Family History Father CVA (cerebral vascular accident) Mother Cancer Surgical History History of colon surgery S/P cataract extraction S/P appendectomy Social History Smoking Status: Never smoker alcohol intake: never Review of Systems (Anesthesia) ROS Narrative System reviewed and no additional complaints, except as documented. Physical Exam Const alert and oriented x3 HEENT Teeth and Gingiva: dentures Resp normal respiratory effort Auscultation: clear to auscultation bilaterally Cardio regular rate and regular rhythm Back/Spine normal ROM Neuro oriented x3 and moves all extremities
--- NOTE | 2025-06-12 07:30 | COLBX_PTH ---
PATIENT: SAL CROWLEY LOC: EN U#:[id number] AGE/SX: 69/M ROOM: RE06/12/[address]: Dr. Elizabeth Gallo MD : 1955 BED: DIS: 06/12/2025 SPEC #: [id number] RECD: 06/12/25 12:23 STATUS: KYLE REAxel #: [id number] HEMANT: 06/12/25 07:[address]: Elizabeth Gallo DEPT: SURGICAL PATHOLOGY RECD BY: Deven Syed ENTERED: 06/12/25 13:22 SP TYPE: COLON BX OT DR: Ugo Nicolas, DEVAN-C Tissues: A - Transverse colon B - Ascending colon C - Transverse colon D - Descending colon Procedures: Surgery Specimen Level IV HEADER OPERATION: Colonoscopy with biopsy and polypectomy PRE-OP DIAGNOSIS: History of malignant neoplasm of colon, tubulovillous adenoma of colon TISSUE SUBMITTED: A- Transverse polyp, B- Ascending colon polyp, C- Transverse polyp biopsy, D- Descending colon polyp x3 MICROSCOPIC DIAGNOSIS A. Transverse colon, polyp, biopsy: - Tubular adenoma. B. Ascending colon, polyp, biopsy: - Tubular adenoma. C. Transverse colon, polyp, biopsy: * Tubular adenoma. D. Descending colon, polyp, biopsy: * Tubular adenoma. MICROSCOPIC DESCRIPTION Slides are reviewed. GROSS DESCRIPTION A. Received in fixative is one container labeled with the patient's name and designated Transverse polyp. The specimen consists of a 0.6 x 0.4 x 0.3 cm jovel-pink granular polyp. The resection margin is inked green and the polyp is bisected. Entirely submitted in 1 cassette.B. Received in fixative is one container labeled with the patient's name and designated Ascending colon polyp. The specimen consists of multiple irregular fragments of jovel tissue that in aggregate measure 0.9 x 0.7 x 0.2 cm. The specimen is totally submitted in one cassette. C. Received in fixative is one container labeled with the patient's name and designated Transverse polyp biopsy. The specimen consists of multiple irregular fragments of jovel tissue that in aggregate measure 1 x 0.7 x 0.1 cm. The specimen is totally submitted in one cassette. D. Received in fixative is one container labeled with the patient's name and designated Descending colon polyp x3. The specimen consists of multiple irregular fragments of jovel tissue that in aggregate measure 1.2 x 0.8 x 0.2 cm. The specimen is totally submitted in one cassette. UT 06/12/2025 CPT:07808a2
[2025-06-12] MEDS: Lidocaine 1% (5 ml sdv) 5 ML Vial IV (08:21)
--- NOTE | 2025-06-12 08:47 | PCM.POST.ANE ---
Anesthesia: Postop Eval I Current Vital Signs Temperature: 97.3 F Pulse Rate: 73 Blood Pressure: 118/83 Respiratory Rate: 20 Pulse Ox: 98 Oxygen Delivery Method: Room Air Assessment Airway patent: Yes Spontaneous unlabored respirations: Yes Mental status: Awake and Calm nausea: No Vomiting: No Anesthesia Complication: No Fluid Hydration Crystalloid volume administer (ml): 700 Total IV fluid infused: 700 Progress Note Anesthesia document: Postop Eval 1 completed: Yes
--- NOTE | 2025-06-12 08:52 | OP.PROVAT_ITS ---
06/12/2025 Ugo Nicolas [facility], Client Technologies Specialist-c Re : Colonoscopy procedure for Arden Holman Dear Maria Isabel This procedure was performed on Thursday, June 12, 2025. My impressions and recommendations are as follows: Impressions : - Five 3 to 6 mm polyps in the descending colon, in the transverse colon, in the ascending colon and in the cecum, removed with a hot snare. Resected and retrieved. - One less than 5 mm polyp in the descending colon, removed with a cold biopsy forceps. Resected and retrieved. Recommendations : - Discharge patient to home. - Resume previous diet. - Resume aspirin at prior dose in 2 days. - Await pathology results. - Repeat colonoscopy in 1 year for surveillance after piecemeal polypectomy. - Continue present medications. My findings are described in the full procedure note, which is enclosed. If I can be of further assistance, please feel free to contact me at Doctor phone number(s): , Work: . Sincerely, MD Elizabeth Still MD 06/12/2025 8:51:32 AM This report has been signed electronically.
--- NOTE | 2025-06-12 08:52 | OP.COLON_ITS ---
Patient Name: Arden Holman Procedure Date: 06/12/2025 7:23 AM Date of : 1955 Age: 69 Procedure: Colonoscopy Indications: Surveillance: Personal history of piecemeal removal of adenoma on last colonoscopy (less than 6 months ago), Surveillance: Personal history of adenomatous polyps, inadequate prep on last colonoscopy (less than 1 year ago), High risk colon cancer surveillance: Personal history of colon cancer Providers: Elizabeth Gallo MD Referring MD: [facility], Supervisor Drawing-c Medicines: Monitored Anesthesia Care Patient Profile: This is a 69 year old male. Last Colonoscopy: January 2025. Complications: No immediate complications. Procedure: Pre-Anesthesia Assessment: - Prior to the procedure, a History and Physical was performed, and patient medications and allergies were reviewed. The patient's tolerance of previous anesthesia was also reviewed. The risks and benefits of the procedure and the sedation options and risks were discussed with the patient. All questions were answered, and informed consent was obtained. Prior Anticoagulants: The patient has taken no anticoagulant or antiplatelet agents except for aspirin. ASA Grade Assessment: Per anesthesia. After reviewing the risks and benefits, the patient was deemed in satisfactory condition to undergo the procedure. After I obtained informed consent, the scope was passed under direct vision. Throughout the procedure, the patient's blood pressure, pulse, and oxygen saturations were monitored continuously. The Colonoscope was introduced through the anus and advanced to the cecum, identified by the appendiceal orifice, ileocecal valve and palpation. The colonoscopy was technically difficult and complex due to significant looping. The patient tolerated the procedure well. The quality of the bowel preparation was adequate to identify polyps. Scope In: 7:35:39 AM Scope Withdrawal Time 0 hours 36 minutes 59 seconds Scope Out: 8:39:31 AM Total Procedure Duration Time 1 hour 3 minutes 52 seconds Findings: The perianal and digital rectal examinations were normal. Five sessile and semi-pedunculated polyps were found in the descending colon, transverse colon, ascending colon and cecum. The polyps were 3 to 6 mm in size. These polyps were removed with a hot snare. Resection and retrieval were complete. A less than 5 mm polyp was found in the descending colon. The polyp was sessile. The polyp was removed with a cold biopsy forceps. Resection and retrieval were complete. Impression: - Five 3 to 6 mm polyps in the descending colon, in the transverse colon, in the ascending colon and in the cecum, removed with a hot snare. Resected and retrieved. - One less than 5 mm polyp in the descending colon, removed with a cold biopsy forceps. Resected and retrieved. Recommendation: - Discharge patient to home. - Resume previous diet. - Resume aspirin at prior dose in 2 days. - Await pathology results. - Repeat colonoscopy in 1 year for surveillance after piecemeal polypectomy. - Continue present medications. Procedure Code(s): --- Professional --- 94534, PT, Colonoscopy, flexible; with removal of tumor(s), polyp(s), or other lesion(s) by snare technique 91071, 59, Colonoscopy, flexible; with biopsy, single or multiple Diagnosis Code(s): --- Professional --- Z86.010, Personal history of colonic polyps Z85.038, Personal history of other malignant neoplasm of large intestine D12.4, Benign neoplasm of descending colon D12.3, Benign neoplasm of transverse colon (hepatic flexure or splenic flexure) D12.2, Benign neoplasm of ascending colon D12.0, Benign neoplasm of cecum Z09, Encounter for follow-up examination after completed treatment for conditions other than malignant neoplasm CPT copyright 2021 [employer]. All rights reserved. The codes documented in this report are preliminary and upon oxygen plant operator review may be revised to meet current compliance requirements. MD Elizabeth Still MD 06/12/2025 8:51:32 AM This report has been signed electronically. Number of Addenda: 0 Note Initiated On: 06/12/2025 7:23 AM
--- NOTE | 2025-06-12 09:15 | POSTOPAN2_ITS ---
Anesthesia Postop Eval I Sum Postop Eval Completion status Anesthesia document: Postop Eval 1 completed: Yes Anesthesia Postop Eval I Summary Anesthesia Postop Eval I Summary: Anesthesia Postop Eval I: Assessment Summary Airway patent Yes 06/12/25 08:48 [email or web address] Spontaneous unlabored Yes 06/12/25 08:48 [email or web address] respirations Mental status Awake,Calm 06/12/25 08:48 [email or web address] nausea No 06/12/25 08:48 [email or web address] Vomiting No 06/12/25 08:48 [email or web address] Anesthesia Postop Eval I: Fluid Summary Crystalloid volume administer 700 06/12/25 08:48 [email or web address] (ml) Colloids volume administered ( ml) Blood Product volume administered (ml) Total IV fluid infused 700 06/12/25 08:48 [email or web address] Anesthesia Postop Eval I: Summary Notes Anesthesia Complication No 06/12/25 08:48 [email or web address] Anesthesia Complication Comment: Post-operative progress note Anesthesia: Postop Eval II Evaluation Mental status: Awake and Calm Pain Level: 0 nausea: No Vomiting: No Complications Anesthesia Complication: No
--- NOTE | 2025-06-12 09:15 | PCM.POSTANE2 ---
Anesthesia Postop Eval I Sum Postop Eval Completion status Anesthesia document: Postop Eval 1 completed: Yes Anesthesia Postop Eval I Summary Anesthesia Postop Eval I Summary: Anesthesia Postop Eval I: Assessment Summary Airway patent Yes 06/12/25 08:48 SENIOR [employer] [email or web address] Spontaneous unlabored Yes 06/12/25 08:48 SENIOR [employer] [email or web address].[email or web address] respirations Mental status Awake,Calm 06/12/25 08:48 SENIOR [employer] [email or web address] nausea No 06/12/25 08:48 SENIOR [employer] [email or web address].[email or web address] Vomiting No 06/12/25 08:48 SENIOR [employer] [email or web address] Anesthesia Postop Eval I: Fluid Summary Crystalloid volume administer 700 06/12/25 08:48 SENIOR [email or web address] [email or web address] (ml) Colloids volume administered ( ml) Blood Product volume administered (ml) Total IV fluid infused 700 06/12/25 08:48 SENIOR PE[employer] [email or web address] Anesthesia Postop Eval I: Summary Notes Anesthesia Complication No 06/12/25 08:48 SENIOR PEOP[employer] [email or web address] Anesthesia Complication Comment: Post-operative progress note Anesthesia: Postop Eval II Evaluation Mental status: Awake and Calm Pain Level: 0 nausea: No Vomiting: No Complications Anesthesia Complication: No
== END 2025-06-12 09:31 | disposition home or self-care (01) ==
LOC: EN 06:05 → AC 06:06
PROVIDERS: PCP Nurse Practitioner Family; Referring Provider Nurse Practitioner Family; Visit Provider Surgery
PROC: 0DJD8ZZ Inspection of Lower Intestinal Tract, Via Natural or Artificial Opening Endoscopic (ICD-10-PCS; CPT 45378; principal; 2025-06-12 07:25)
DX: Z12.11 Encounter for screening for malignant neoplasm of colon (principal); E11.9 Type 2 diabetes mellitus without complications; Z79.4 Long term (current) use of insulin; D12.0 Benign neoplasm of cecum; I10 Essential (primary) hypertension; E78.00 Pure hypercholesterolemia, unspecified; Z86.0100 Personal history of colon polyps, unspecified; Z79.82 Long term (current) use of aspirin; Z79.85 Long-term (current) use of injectable non-insulin antidiabetic drugs; Z79.890 Hormone replacement therapy; Z79.84 Long term (current) use of oral hypoglycemic drugs; Z85.038 Personal history of other malignant neoplasm of large intestine; Z79.899 Other long term (current) drug therapy; E03.9 Hypothyroidism, unspecified; Z98.49 Cataract extraction status, unspecified eye; Z90.49 Acquired absence of other specified parts of digestive tract; K63.5 Polyp of colon
CPT/HCPCS: 45385; 45380; 82962; 88305; J2405

== ENCOUNTER → 2025-07-12 | Outpatient (CLI) | payer MEDICARE, SELFPAY ==
[2025-07-12 12:28] LABS: Color, Urine Yellow (Yellow); Glucose, Dipstick 1000 mg/dl (Normal); Ketone-Dipstick Negative (Negative); Leukocyte Esterase-Dipstick Negative /ul (Negative); Nitrite-Dipstick Negative (Negative); Occult Blood-Urine 10 /ul (Negative); Protein-Dipstick Negative (Negative); Specific Gravity, Urine 1.015 (1.002-1.030); Urine Bilirubin Dipstick Negative (Negative)
[2025-07-12 12:47] LABS: Hematocrit 51.6 % (40-54); Hemoglobin 17.6 g/dL (13.0-16.5); Immature Granulocytes Count 0.030 X10^3/uL (0.0-0.0); Mean Corp Hgb Conc 34.1 g/dL (32-36); Mean Corpuscular Volume 89.6 fL (80-94); Mean Platelet Vol. 9.1 fl (6.2-12.0); NRBC Flagged by Analyzer 0 % (0-5); Platelet Count 330 K/mm3 (150-450); RBC Distribution Width CV 12.5 % (11.6-14.6); RBC Distribution Width SD 40.4 fl (35.1-43.9); Red Blood Count 5.76 M/mm3 (4.6-6.2); White Blood Count 10.5 K/mm3 (4.4-11.0)
[2025-07-12 12:49] LABS: Microalbumin,Random Urine < 12.0 mg/L (<20 mg/L)
[2025-07-12 13:07] LABS: AST(SGOT) 16 U/L (<=37); Alanine Aminotransfer ALT/SGPT 15 U/L (<=46); Albumin, Serum 4.4 g/dL (3.4-4.8); Alkaline Phosphatase 32 U/L (40-129); Anion Gap 12 (5-15); BUN 23 mg/dL (4-19); BUN/Creat Ratio 20.5 RATIO (10-20); Calcium,Total 10.0 mg/dL (7.6-11.0); Carbon Dioxide 25.5 mmol/L (21.0-32.0); Chloride 102 mmol/L (98-108); Cholesterol 133 mg/dL (<=200); Globulin 3.3 g/dL (2.2-4.2); Glucose 172 mg/dL (70-99); Low Density Lipoprotein Calc. 61 mg/dL; PSA,Total- Diagnostic 2.51 ng/mL (0.00-4.00); Potassium 4.5 mmol/L (3.3-5.1); Triglycerides 210 mg/dL; Very Low Density Lipoprotein 42 mg/dL (5-40); Vitamin B12 871 pg/mL (180-914); Vitamin D,25 Hydroxy 61.7 ng/mL (30-100); cholesterol:hdl ratio screen 3.54
== END | disposition home or self-care (01) ==
LOC: VSLAB 08:59
PROVIDERS: PCP Nurse Practitioner Family; Referring Provider Nurse Practitioner Family; Visit Provider Nurse Practitioner Family
DX: E11.65 Type 2 diabetes mellitus with hyperglycemia (principal); I10 Essential (primary) hypertension; E56.9 Vitamin deficiency, unspecified
CPT/HCPCS: 36415; 80053; 80061; 81002; 82043; 82306; 82607; 84153; 84443; 85025